=== PATIENT | female | born 1975 | race Caucasian/White ===

== ENCOUNTER 2016-11-25 14:07 | Emergency (ER) | payer OTHER ==
[~2016-11-25 14:07] MED LIST: IBUPROFEN400 MG PO; NICOTINE T21 MG/24 H TOP; VICODIN EQUIVAL1 TAB PO
--- NOTE | 2016-11-25 15:44 | DIAGNOSTIC IMAGING REPORT ---
PROCEDURE: XR CHEST 2 VIEW INDICATION: COUGH TECHNIQUE: PA and lateral views. COMPARISON: None. FINDINGS: Lungs are clear. Heart and mediastinum are normal. Thorax is normal. IMPRESSION: 1. Negative chest.
--- NOTE | 2016-11-25 16:49 | DIAGNOSTIC IMAGING REPORT ---
PROCEDURE: CT SOFT TISSUE NECK WITH CONT INDICATION: Right cheek swelling x 1 day, initial encounter TECHNIQUE: 125 ml of Isovue 300 injected intravenously and axial images were obtained from the skull base through the upper mediastinum with sagittal and coronal reformations. In addition, angled axial oblique images were obtained (avoiding dental hardware). COMPARISON: None. FINDINGS: Prominent soft tissue swelling around the right side of the mandible anteriorly but no evidence of an abscess. There is a small amount of air around the root of the right mandibular incisor and pre molars consistent with cavities. Enlarged right submandibular lymph nodes, 1.3 cm and bilateral cervical lymph nodes (1.1 cm short axis). The parotid, submandibular and thyroid glands are normal. Normal airway. Right maxillary sinus polyp. Visualized mastoids are clear. Moderate degenerative changes of the spine. IMPRESSION: 1. Cavities of the right mandibular incisor and pre molars with adjacent cellulitis/phlegmon but no evidence of an abscess 2. Right maxillary sinus polyp 3. Results discussed with LUTHER Ware All CT scans at this facility use dose modulation, iterative reconstruction, and/or weight-based dosing when appropriate to reduce radiation dose to as low as reasonably achievable.
--- NOTE | 2016-11-25 17:21 | ED ORDER SUMMARY ---
..... Patient: DAVID ARIAS OrderSheet [facility] VisitID: [id number] [place] [address] 41y, F Registration Date/Time: 11/25/2016 ORDER SHEET Weight: 117.9 kg (stated) Allergies: No Known Drug Allergy GENERAL ORDERS: Chest 2V Urgent (14:35 11/25/2016 EKoroleva P.A.-C) (Ack 14:39 LTapper) (16:21 GMarshall R.N.) CBC w Diff Urgent (14:35 11/25/2016 EKoroleva P.A.-C) (Ack 14:39 LTapper) (16:21 GMarshall R.N.) BMP Urgent (14:35 11/25/2016 EKoroleva P.A.-C) (Ack 14:39 LTapper) (16:21 GMarshall R.N.) PCT (Procalcitonin) Urgent (14:36 11/25/2016 EKoroleva P.A.-C) (Ack 14:39 LTapper) (16:21 GMarshall R.N.) EKG - ER Stat (14:36 11/25/2016 EKoroleva P.A.-C) (Ack 14:39 LTapper) (15:02 RKaruga) CT Soft Tissue Neck w Cont (No) (see lab) Urgent (15:36 11/25/2016 EKoroleva P.A.-C) (Ack 15:46 LTapper) (17:07 GMarshall R.N.) MEDICATION ORDERS: Hydrocodone-APAP PO 5/325 mg (NOW) (18:44 11/25/2016 GMarshall R.N. verbal order read back to EKoroleva P.A.-C) (18:45 GMarshall R.N.) IV FLUIDS: IV NS : initial bolus 1000 mL (1000 mL/hr), then 1000 mL/hr for X1 (NOW); Timoteo (14:35 11/25/2016 EKoroleva P.A.-C) (Ack 14:50 GMarshall R.N.) (16:59 GMarshall R.N.) Morphine IV 4 mg (HIGH ALERT MEDICATION, NOW) (15:20 11/25/2016 EKoroleva P.A.-C) (15:23 GMarshall R.N.) Dilaudid IV 0.5 mg (HIGH ALERT MEDICATION, NOW) (15:49 11/25/2016 EKoroleva P.A.-C) (Ack 15:51 MWinterer R.N.) (18:49 MWinterer R.N.) Toradol IV 30 mg (NOW) (16:16 11/25/2016 EKoroleva P.A.-C) (16:21 GMarshall R.N.) Clindamycin IV 900 mg/50mL (NOW) (17:10 11/25/2016 EKoroleva P.A.-C) (17:17 GMarshall R.N.) ORDER SHEET NOTES: [Electronically signed by Pedro Linda R.N. (19:41 11/25/2016)] [Electronically signed by Brianna Nails P.A.-C (20:08 11/25/2016)] [Electronically locked/signed by Pedro Linda R.N. (19:41 11/25/2016)]
--- NOTE | 2016-11-25 17:21 | ED ORDER SUMMARY ---
..... Patient: DAVID ARIAS OrderSheet [facility] VisitID: [id number] [place] [address] 41y, F Registration Date/Time: 11/25/2016 ORDER SHEET Weight: 117.9 kg (stated) Allergies: No Known Drug Allergy GENERAL ORDERS: Chest 2V Urgent (14:35 11/25/2016 EKoroleva P.A.-C) (Ack 14:39 LTapper) (16:21 GMarshall R.N.) CBC w Diff Urgent (14:35 11/25/2016 EKoroleva P.A.-C) (Ack 14:39 LTapper) (16:21 GMarshall R.N.) BMP Urgent (14:35 11/25/2016 EKoroleva P.A.-C) (Ack 14:39 LTapper) (16:21 GMarshall R.N.) PCT (Procalcitonin) Urgent (14:36 11/25/2016 EKoroleva P.A.-C) (Ack 14:39 LTapper) (16:21 GMarshall R.N.) EKG - ER Stat (14:36 11/25/2016 EKoroleva P.A.-C) (Ack 14:39 LTapper) (15:02 RKaruga) CT Soft Tissue Neck w Cont (No) (see lab) Urgent (15:36 11/25/2016 EKoroleva P.A.-C) (Ack 15:46 LTapper) (17:07 GMarshall R.N.) MEDICATION ORDERS: Hydrocodone-APAP PO 5/325 mg (NOW) (18:44 11/25/2016 GMarshall R.N. verbal order read back to EKoroleva P.A.-C) (18:45 GMarshall R.N.) IV FLUIDS: IV NS : initial bolus 1000 mL (1000 mL/hr), then 1000 mL/hr for X1 (NOW); Timoteo (14:35 11/25/2016 EKoroleva P.A.-C) (Ack 14:50 GMarshall R.N.) (16:59 GMarshall R.N.) Morphine IV 4 mg (HIGH ALERT MEDICATION, NOW) (15:20 11/25/2016 EKoroleva P.A.-C) (15:23 GMarshall R.N.) Dilaudid IV 0.5 mg (HIGH ALERT MEDICATION, NOW) (15:49 11/25/2016 EKoroleva P.A.-C) (Ack 15:51 MWinterer R.N.) (18:49 MWinterer R.N.) Toradol IV 30 mg (NOW) (16:16 11/25/2016 EKoroleva P.A.-C) (16:21 GMarshall R.N.) Clindamycin IV 900 mg/50mL (NOW) (17:10 11/25/2016 EKoroleva P.A.-C) (17:17 GMarshall R.N.) ORDER SHEET NOTES: [Electronically signed by Pedro Linda R.N. (19:41 11/25/2016)] [Electronically signed by Brianna Nails P.A.-C (20:08 11/25/2016)] [Electronically locked/signed by Pedro Linda R.N. (19:41 11/25/2016)]
--- NOTE | 2016-11-25 17:21 | ED CLINICAL REPORT ---
Clinical Report - Physicians/Mid Levels [facility] [address] [place] [place] [address] 11/25/2016 14:08 Patient: DAVID ARIAS Time Seen: 14:53 Nov 25 2016. Arrived- By private vehicle. Historian- patient. HISTORY OF PRESENT ILLNESS Chief Complaint: DENTAL PAIN. This started today right side facial pain/ swelling and is still present. Pain described as mild. The patient has had a sore throat. (Patient reports facial swelling over the last 24 hours, worsening. Patient with no fevers. Denies any difficulty swallowing. Reports right side dental pain.). REVIEW OF SYSTEMS No fever, cough, difficulty breathing, diarrhea or abdominal pain. No headache or joint pain. All systems otherwise negative, except as recorded above. SOCIAL HISTORY Smoker- current status unknown. No alcohol use or drug use. ADDITIONAL NOTES The nursing notes have been reviewed. PHYSICAL EXAM Vital Signs: 11/25/2016 14:30 BP: 178/95. HR: 130. RR: 20. O2 saturation: 96%. Temp: 98.4 F. Appearance: Alert. No acute distress. Head: Normal external inspection. ENT: Dental decay. Mild dental tenderness (lower right first premolar, lower right first molar). Ears normal. Pharynx normal. No trismus present. Uvula midline. No muffled or hoarse voice. Neck: Trachea midline. No adenopathy. No thyromegaly. CVS: Normal heart rate and rhythm. Heart sounds normal. Respiratory: No respiratory distress. Breath sounds normal. Abdomen: Soft and nontender. Skin: Normal skin color. Skin rash (r outer facial swelling to the outer lip). Extremities: Extremities nontender. LABS, X-RAYS, AND EKG Laboratory Tests: CBC w Diff: (YING: 11/25/2016 15:10) ( MsgRcvd 11/25/2016 15:33) Final results Test Result Flag Units (Reference) WHITE BLOOD COUNT 18.4 H K/uL (4.5-11.5) RED BLOOD COUNT 4.84 M/uL (4.00-5.20) HEMOGLOBIN 14.6 gm/dL (12.0-16.0) HEMATOCRIT 45.3 % (36.0-46.0) MEAN CELL VOLUME 94 fL (80-100) MEAN CORPUSCULAR HGB 30 pg (26-34) MEAN CORPUSCULAR HGB CONC 32 g/dL (31-37) RED CELL DISTRIBUTION WIDTH 13.6 % (11.6-14.8) PLATELET COUNT 305 K/uL (150-400) NEUTROPHIL % 75.3 H % (50-75) LYMPH % 17.6 L % (25-40) MONO % 4.8 % (3-14) EOSINOPHIL % 2.0 % (0-4) BASOPHIL % 0.3 % (0-2) [id number]: (YING: 11/25/2016 15:10) ( MsgRcvd 11/25/2016 16:14) Final results Test Result Flag Units (Reference) PROCALCITONIN <0.5 ng/mL (0-0.5) PCT Concentration: Interpretation : Risk/option for action PCT <=0.5 ng/mL : Systemic : Low risk forinfection(sepsis): progression to severeis not likely. : systemic infection.Local bacterial : CAUTION-PCT levelsinfection is : below 0.5 ng/mL do notpossible. : exclude an infection,because localizedinfections (withoutsystemic signs) may beassociated with suchlow levels. If PCT ismeasured very earlyafter a bacterialchallenge (usually <6hours), these valuesmay still be low. Inthis case PCT shouldbe re-assessed 6-24hours later. PCT >0.5 and : Systemic infection: Moderate risk for<= 2 ng/mL : (sepsis) is : progression to severepossible, but : systemic infection.other conditions : The patient should beare known to : closely monitoredelevate PCT. : both clinically andby re-assessing PCTwithin 6-24 hours. PCT > 2 ng/mL : Systemic infection: High risk for(sepsis) is likely: progression to severeunless other : systemic infection.causes are known. : PCT >= 10 ng/mL : Important systemic: High likelihood ofinflammatory : severe sepsis orresponse, almost : septic shock.exclusively due to:severe bacterial :sepsis or septic :shock. : BMP: (YING: 11/25/2016 15:10) ( MsgRcvd 11/25/2016 15:40) Final results Test Result Flag Units (Reference) GLUCOSE 257 H mg/dL (70-110) BUN 9 mg/dL (7-18) CREATININE 0.6 mg/dL (0.6-1.3) Estimated GFR >60 mL/min Estimated GFR- >60 mL/min Note: Persistent reduction over 3 months in eGFR<60 mL/min/1.73 m2 defines CKD. Patients with eGFR values>=60 mL/min/1.73 m2 may also have CKD if evidence ofpersistent proteinuria. Additional information may be foundat www.kidney.org. SODIUM 137 mmol/L (136-145) POTASSIUM 3.7 mmol/L (3.5-5.1) CHLORIDE 101 mmol/L (98-107) CARBON DIOXIDE 23 mmol/L (21-32) CALCIUM 8.7 mg/dL (8.5-10.1) . Note - Tests: (CT: IMPRESSION: 1. Cavities of the right mandibular incisor and pre molars with adjacent cellulitis/phlegmon but no evidence of an abscess 2. Right maxillary sinus polyp 3. Results discussed with Artemio Nails, LUTHER All CT scans at this facility use dose modulation, iterative reconstruction, and/or weight-based dosing when appropriate to reduce radiation dose to as low as reasonably achievable. Electronically Final signed by:Winston Miranda MD 11/25/2016 4:48:57 PM). PROGRESS AND PROCEDURES Course of Care: patient here in the ER, with signs of facial swelling, dedicated CT, does not reveal any acute signs of abscess. patient given IV fluids, IV antibiotics in the ER. Patient stable. No uvula shift. No indication for incision and drainage. 11/25/2016 19:15 BP: 110/66. HR: 95. RR: 20. O2 saturation: 98%. Temp: 98.5 F. Patient is stable. Physical exam findings are improved. Symptoms better. Patient/family counseled. Disposition: Discharged. Condition: good. CLINICAL IMPRESSION Facial cellulitis INSTRUCTIONS (warm packs). Prescription Medications: Hydrocodone/APAP 5mg / 325mg: take 1 orally every 6 hours as needed for pain. Dispense fifteen (15). No refill. Cleocin 300 mg: take 1 capsule orally every 8 hours for 10 days. No refill. Substitution is permissible. Motrin 800 mg tablets: take 1 tablet orally every 8 hours for 5 days, as needed for pain. Dispense fifteen (15). No refill. Substitution is permissible. Follow-up: Follow up with your doctor and DENTIST in three days for wound check. (Electronically signed by Brianna Nails P.A.-C 11/25/2016 20:08)
--- NOTE | 2016-11-25 17:21 | ED NURSING NOTES ---
Clinical Report - Nurses [facility] [address] [place] [address] 11/25/2016 14:08 Patient: DAVID ARIAS TRIAGE Acuity: LEVEL 3. Chief Complaint: BOIL. Alert. No acute distress. SEPSIS SCREEN: Sepsis Screen. Negative (no infection suspected/documented). --14:34 Digna Turner R.N. 14:30 11/25/16. BP: 178/95. HR: 130. RR: 20. O2 saturation: 96% on room air. Temp: 98.4 F (oral). --14:34 Digna Turner R.N. 19:41 11/25/16. Pain level now 10/10. --19:41 Pedro Linda R.N. Weight: 117.9 kg stated. Height/Length: 63 inches Per Patient. BMI: 46.1. --14:32 Digna Turner R.N. Medications Ibuprofen Oral. --14:33 Digna Turner R.N. Allergies No Known Drug Allergy. --14:33 Digna Turner R.N. Medication/allergy information source: the patient. --14:34 Digna Turner R.N. History Arrived by private vehicle. Historian: patient. Accompanied by father. Primary physician (none). Reported as located on the face. Onset. (2 days ago). It is described as painful. Treatment DISTILLATION OPERATOR: None. PAST MEDICAL HX: Immunizations: up-to-date. The patient has had a hysterectomy. SOCIAL HX: Current every day heavy tobacco smoker (cigarette)- 1 pack per day. No alcohol use or drug use. FALL RISK ASSESSMENT: Fall risk assessment completed. No fall risk identified. NUTRITIONAL RISK ASSESSMENT: The nutritional risk assessment revealed no deficiencies. FUNCTIONAL ASSESSMENT: Functional assessment: no impairments noted. LEARNING NEEDS ASSESSMENT: The learning needs assessment revealed no barriers. SKIN INTEGRITY ASSESSMENT: Skin integrity risk assessment completed. No skin integrity risk identified. --14:34 Digna Turner R.N. PROBLEMS: Abdominal Pain. Abd Hernia. Nephrolithiasis. Asthma. Hypertension. Pancreatitis. --14:34 Digna Turner R.N. ADDITIONAL SURGERIES: Hysterectomy. Knee Surgery. [place] teeth. --14:34 Digna Turner R.N. Interventions ID band on patient. To treatment room. --14:34 Digna Turner R.N. PHYSICAL ASSESSMENT Ambulatory to room. GENERAL / NEURO / PSYCH: Alert. The patient does not appear to be in acute distress. Oriented X 4. HEENT: Mucous membranes are pink. RESPIRATORY: Respirations not labored. CVS: Capillary refill less than 2 seconds. SKIN: Skin is warm and dry. No skin rash. --14:34 Digna Turner R.N. NURSING PROGRESS NOTES Patient gowned. Two patient identifiers checked. Call light placed in reach. Side rails up x 1. Bed placed in lowest position. Brakes of bed on. Patient ready for evaluation- chart flagged. --14:35 Digna Turner R.N. EKG time: (14:57). EKG was performed by a eliud and shown to the ED physician. --15:01 Yazmin Goddard 15:07 11/25/2016 Site #1 started via IV in the left hand with an 22g angiocath, with aseptic technique and good blood return; two attempts. Blood drawn: rainbow set. Labeled in the presence of the patient and sent to the lab. Saline lock flushed with 10 mL saline. --15:22 Pedro Linda R.N. 15:23 11/25/2016 Morphine IVP 4 mg given over 2 minute(s) via site #1. --15:23 Pedro Linda R.N. 15:49 11/25/2016 Started bag #1 1000 mL IV Fluids IV NS (Saline); bolus of 1000 mL over 1 hour(s) via site #1 --16:59 Pedro Linda R.N. 15:55 11/25/2016 Dilaudid (HYDROmorphone HCl PF) IVP 0.5 mg given over 1 minute(s) via site #1. Allergies verified, confirmed 5 rights and sedative warning given to the patient. IV patency established. IV site checked: no pain, redness, or swelling. IV flushed thoroughly pre- and post-medication administration. IVP given by RN. --18:49 Digna Turner R.N. 16:17 11/25/2016 Dilaudid IVP Response: symptoms are the same. --19:17 Pedro Linda R.N. 16:21 11/25/2016 Toradol IVP 30 mg given over 2 minute(s) via site #1. --16:21 Pedro Linda R.N. 16:45 11/25/2016 Morphine IVP Response: symptoms are the same. The patient feels the same. --18:45 Pedro Linda R.N. 17:00 11/25/2016 Started bag #1 1000 mL IV Fluids IV NS (Saline); at 1000 mL/hr over 1 hour(s) via site #1 --17:01 Pedro Linda R.N. 17:00 11/25/2016 IV Fluids IV NS Discontinued: bag #1 completed. Total amount infused: 1000 mL. --17:00 Pedro Linda R.N. 17:12 11/25/2016 Started 900 mg of Clindamycin IVPB in bag #1 50 mL; at 100 mL/hr over 30 minute(s) via site #1 --17:17 Pedro Linda R.N. 17:18 11/25/2016 Toradol IVP Response: pain is improving. Symptoms have improved. --19:18 Pedro Linda R.N. 18:18 11/25/2016 Clindamycin IVPB Discontinued: bag #3 completed upon discharge. Total amount infused: 50 mL. --19:19 Pedro Linda R.N. 18:30 11/25/2016 Site #1 removed upon discharge. Catheter intact. Bandaid applied. --19:21 Pedro Linda R.N. 18:31 11/25/2016 IV Fluids IV NS Discontinued: bag #2 completed. Total amount infused: 1000 mL. --18:46 Pedro Linda R.N. 18:45 11/25/2016 Hydrocodone-APAP (Hydrocodone-Acetaminophen) PO 5/325 mg Tablets 1 tab given. --18:45 Pedro Linda R.N. DISPOSITION / DISCHARGE 18:43 11/25/16. BP: 110/66. HR: 95. RR: 20. O2 saturation: 98%. Temp: 98 F. Pain level now 05/19. --18:43 Pedro Linda R.N. 19:15 11/25/16. BP: 110/66. HR: 95. RR: 20. O2 saturation: 98%. Temp: 98.5 F. Pain level now 05/19. --19:16 Pedro Linda R.N. Condition at departure: improved. No learning barriers present. Discharge instructions provided and reviewed with the patient. Patient verbalized understanding. Written instructions provided in Maldivian. The patient was discharged by the physician educational assistant teacher. She was discharged home. She left the Emergency Department ambulatory. --19:16 Pedro Linda R.N. Locked/Released at 11/25/2016 19:41 by Pedro Linda R.N.
--- NOTE | 2016-11-25 20:08 | ED MED RECONCILIATION SUMMARY ---
Patient: DAVID ARIAS Medication Reconciliation Report [facility] VisitID: [id number] [address] [place] [address] 41y, F Registration Date/Time: 11/25/2016 Weight: 117.9 kg Height/Length: 63 in. BMI: 46.1 ALLERGIES: No Known Drug Allergy The patient's Home Medications are listed below: THE FOLLOWING MEDICATIONS NEED TO BE RECONCILED: Ibuprofen Oral The source(s) of the original Home Medication information: patient The following Medications were given to the patient in the Emergency Department: Morphine [IVP] IVP 4 mg, administered: 11/25/2016 3:23:00 PM Toradol [IVP] IVP 30 mg, administered: 11/25/2016 4:21:00 PM IV NS IV Fluids bolus 1000 mL over 1 hour(s), administered: 11/25/2016 3:49:00 PM IV NS IV Fluids bolus 0, then 1000 mL/hr, administered: 11/25/2016 5:00:00 PM Clindamycin [IVPB] IVPB bolus 0, then 900 mg 100 mL/hr, administered: 11/25/2016 5:12:00 PM Hydrocodone-APAP [PO] PO 1 tab, administered: 11/25/2016 6:45:00 PM Dilaudid [IVP] IVP 0.5 mg, administered: 11/25/2016 3:55:00 PM The following Medications were prescribed to the patient: Hydrocodone/APAP 5mg / 325mg: take 1 orally every 6 hours as needed for pain. Dispense fifteen (15). No refill. -- Brianna Nails, P.A.-C Cleocin 300 mg: take 1 capsule orally every 8 hours for 10 days. No refill. Substitution is permissible. -- Brianna Nails, P.A.-C Motrin 800 mg tablets: take 1 tablet orally every 8 hours for 5 days, as needed for pain. Dispense fifteen (15). No refill. Substitution is permissible. -- Brianna Nails, P.A.-C
--- NOTE | 2016-11-25 20:08 | ED MED RECONCILIATION SUMMARY ---
Patient: DAVID ARIAS Medication Reconciliation Report [facility] VisitID: [id number] [address] [place] [address] 41y, F Registration Date/Time: 11/25/2016 Weight: 117.9 kg Height/Length: 63 in. BMI: 46.1 ALLERGIES: No Known Drug Allergy The patient's Home Medications are listed below: THE FOLLOWING MEDICATIONS NEED TO BE RECONCILED: Ibuprofen Oral The source(s) of the original Home Medication information: patient The following Medications were given to the patient in the Emergency Department: Morphine [IVP] IVP 4 mg, administered: 11/25/2016 3:23:00 PM Toradol [IVP] IVP 30 mg, administered: 11/25/2016 4:21:00 PM IV NS IV Fluids bolus 1000 mL over 1 hour(s), administered: 11/25/2016 3:49:00 PM IV NS IV Fluids bolus 0, then 1000 mL/hr, administered: 11/25/2016 5:00:00 PM Clindamycin [IVPB] IVPB bolus 0, then 900 mg 100 mL/hr, administered: 11/25/2016 5:12:00 PM Hydrocodone-APAP [PO] PO 1 tab, administered: 11/25/2016 6:45:00 PM Dilaudid [IVP] IVP 0.5 mg, administered: 11/25/2016 3:55:00 PM The following Medications were prescribed to the patient: Hydrocodone/APAP 5mg / 325mg: take 1 orally every 6 hours as needed for pain. Dispense fifteen (15). No refill. -- Brianna Nails, P.A.-C Cleocin 300 mg: take 1 capsule orally every 8 hours for 10 days. No refill. Substitution is permissible. -- Brianna Nails, P.A.-C Motrin 800 mg tablets: take 1 tablet orally every 8 hours for 5 days, as needed for pain. Dispense fifteen (15). No refill. Substitution is permissible. -- Brianna Nails, P.A.-C
--- NOTE | 2016-11-25 20:08 | ED DISCHARGE INSTRUCTIONS ---
Patient: DAVID ARIAS General Instructions [facility] VisitID: [id number] [place] [address] 41y, F Registration Date/Time: 11/25/2016 Facial cellulitis INSTRUCTIONS (warm packs). Prescription Medications: Hydrocodone/APAP 5mg / 325mg: take 1 orally every 6 hours as needed for pain. Dispense fifteen (15). No refill. Cleocin 300 mg: take 1 capsule orally every 8 hours for 10 days. No refill. Substitution is permissible. Motrin 800 mg tablets: take 1 tablet orally every 8 hours for 5 days, as needed for pain. Dispense fifteen (15). No refill. Substitution is permissible. Follow-up: Follow up with your doctor and DENTIST in three days for wound check. ADDITIONAL INFORMATION Facial Cellulitis You have an infection of the skin known as cellulitis. This usually starts with a scrape, cut or insect bite which becomes infected. It may also occur from an infected oil gland (pimple) or hair follicle. This can be a serious condition and must be watched closely to be sure the infection is not spreading. With antibiotic treatment, the size of the red area will gradually shrink in size until the skin returns to normal. This will take 7-10 days. The red area should never increase in size once the antibiotic medicine has been started. Occasionally, an infection will be resistant to one antibiotic and another one will have to be used. Home Care: 1) Take all of the antibiotic medicine exactly as prescribed until it is gone. Be careful not to miss any doses, especially during the first few days. 2) A cool compress (face cloth soaked in cool water) applied to the face may help with the swelling and pain. 3) You may use acetaminophen (Tylenol) or ibuprofen (Motrin, Advil) to control pain, unless another medicine was prescribed. [ NOTE : If you have chronic liver or kidney disease or ever had a stomach ulcer or GI bleeding, talk with your doctor before using these medicines.] (Aspirin should never be used in anyone under 18 years of age who is ill with a fever. It may cause severe liver damage.) Follow Up with your doctor or this facility as directed. Check the infected area daily for the warning signs listed below. Get Prompt Medical Attention if any of the following occur: -- Increasing area of redness, swelling or pain -- Pus or fluid drainage from the skin or the eye -- Fever of 100.5 F (38 C) oral or 101.5 F (38.6 C) rectal for more than two days on antibiotics -- Eyelid swells shut -- Increasing headache or neck pain -- Unusual drowsiness or confusion -- Convulsion (seizure) Hydrocodone Bitartrate, Acetaminophen Oral tablet What is this medicine? ACETAMINOPHEN; HYDROCODONE (a set a XOCHITL dimitris fen; den droe KOE done) is a pain reliever. It is used to treat mild to moderate pain. How should I use this medicine? Take this medicine by mouth. Swallow it with a full glass of water. Follow the directions on the prescription label. If the medicine upsets your stomach, take the medicine with food or milk. Do not take more than you are told to take. Talk to your emergency veterinary assistant regarding the use of this medicine in children. This medicine is not approved for use in children. What side effects may I notice from receiving this medicine? Side effects that you should report to your doctor or health manager critical care as soon as possible: allergic reactions like skin rash, itching or hives, swelling of the face, lips, or tongue breathing problems confusion feeling faint or lightheaded, falls stomach pain yellowing of the eyes or skin Side effects that usually do not require medical attention (report to your doctor or health manager critical care if they continue or are bothersome): nausea, vomiting stomach upset What may interact with this medicine? alcohol antihistamines isoniazid medicines for depression, anxiety, or psychotic disturbances medicines for sleep muscle relaxants naltrexone narcotic medicines (opiates) for pain phenobarbital ritonavir tramadol What if I miss a dose? If you miss a dose, take it as soon as you can. If it is almost time for your next dose, take only that dose. Do not take double or extra doses. Where should I keep my medicine? Keep out of the reach of children. This medicine can be abused. Keep your medicine in a safe place to protect it from theft. Do not share this medicine with anyone. Selling or giving away this medicine is dangerous and against the law. Store at room temperature between 15 and 30 degrees C (59 and 86 degrees F). Protect from light. Keep container tightly closed. Throw away any unused medicine after the expiration date. Discard unused medicine and used packaging carefully. Pets and children can be harmed if they find used or lost packages. What should I tell my health care provider before I take this medicine? They need to know if you have any of these conditions: brain tumor Crohn's disease, inflammatory bowel disease, or ulcerative colitis drink more than 3 alcohol-containing drinks per day drug abuse or addiction head injury heart or circulation problems kidney disease or problems going to the bathroom liver disease lung disease, asthma, or breathing problems an unusual or allergic reaction to acetaminophen, hydrocodone, other opioid analgesics, other medicines, foods, dyes, or preservatives or trying to get breast-feeding What should I watch for while using this medicine? Tell your doctor or health manager critical care if your pain does not go away, if it gets worse, or if you have new or a different type of pain. You may develop tolerance to the medicine. Tolerance means that you will need a higher dose of the medicine for pain relief. Tolerance is normal and is expected if you take the medicine for a long time. Do not suddenly stop taking your medicine because you may develop a severe reaction. Your body becomes used to the medicine. This does NOT mean you are addicted. Addiction is a behavior related to getting and using a drug for a non-medical reason. If you have pain, you have a medical reason to take pain medicine. Your doctor will tell you how much medicine to take. If your doctor wants you to stop the medicine, the dose will be slowly lowered over time to avoid any side effects. You may get drowsy or dizzy when you first start taking the medicine or change doses. Do not drive, use machinery, or do anything that may be dangerous until you know how the medicine affects you. Stand or sit up slowly. There are different types of narcotic medicines (opiates) for pain. If you take more than one type at the same time, you may have more side effects. Give your health care provider a list of all medicines you use. Your doctor will tell you how much medicine to take. Do not take more medicine than directed. Call emergency for help if you have problems breathing. The medicine will cause constipation. Try to have a bowel movement at least every 2 to 3 days. If you do not have a bowel movement for 3 days, call your doctor or health manager critical care. Too much acetaminophen can be very dangerous. Do not take Tylenol (acetaminophen) or medicines that contain acetaminophen with this medicine. Many non-prescription medicines contain acetaminophen. Always read the labels carefully. Clindamycin Hydrochloride Oral capsule What is this medicine? CLINDAMYCIN (NORMAN Jeong) is a lincosamide antibiotic. It is used to treat certain kinds of bacterial infections. It will not work for colds, flu, or other viral infections. How should I use this medicine? Take this medicine by mouth with a full glass of water. Follow the directions on the prescription label. You can take this medicine with food or on an empty stomach. If the medicine upsets your stomach, take it with food. Take your medicine at regular intervals. Do not take your medicine more often than directed. Take all of your medicine as directed even if you think your are better. Do not skip doses or stop your medicine early. Talk to your emergency veterinary assistant regarding the use of this medicine in children. Special care may be needed. What side effects may I notice from receiving this medicine? Side effects that you should report to your doctor or health manager critical care as soon as possible: allergic reactions like skin rash, itching or hives, swelling of the face, lips, or tongue dark urine pain on swallowing redness, blistering, peeling or loosening of the skin, including inside the mouth unusual bleeding or bruising unusually weak or tired yellowing of eyes or skin Side effects that usually do not require medical attention (report to your doctor or health manager critical care if they continue or are bothersome): diarrhea itching in the rectal or genital area joint pain nausea, vomiting stomach pain What may interact with this medicine? chloramphenicol erythromycin kaolin products What if I miss a dose? If you miss a dose, take it as soon as you can. If it is almost time for your next dose, take only that dose. Do not take double or extra doses. Where should I keep my medicine? Keep out of the reach of children. Store at room temperature between 20 and 25 degrees C (68 and 77 degrees F). Throw away any unused medicine after the expiration date. What should I tell my health care provider before I take this medicine? They need to know if you have any of these conditions: kidney disease liver disease stomach problems like colitis an unusual or allergic reaction to clindamycin, lincomycin, or other medicines, foods, dyes like tartrazine or preservatives or trying to get breast-feeding What should I watch for while using this medicine? Tell your doctor or healthcare professional if your symptoms do not start to get better or if they get worse. Do not treat diarrhea with over the counter products. Contact your doctor if you have diarrhea that lasts more than 2 days or if it is severe and watery. You have been given the following additional information: Cellulitis, Facial Hydrocodone Bitartrate, Acetaminophen Oral tablet Clindamycin Hydrochloride Oral capsule (Electronically signed by Brianna Nails P.A.-C 11/25/2016 20:08)
--- NOTE | 2016-11-25 20:08 | ED MAR SUMMARY ---
..... Medication Administration Record [facility] [address] [place] [address] Patient: DAVID ARIAS Visit ID: [id number] 41y, F Weight: 117.9 kg Height/Length: 63 in BMI: 46.1 ALLERGIES: No Known Drug Allergy Given 15:23 11/25/2016 Pedro Linda R.N. Medication Administered: MORPHINE [IVP], Dose: 4 mg IVP over 2 minute(s), Site: #1 left hand. Medication Ordered: Morphine IV 4 mg (HIGH ALERT MEDICATION, NOW). Start 15:49 11/25/2016 Pedro Linda R.N., Stop 17:00 11/25/2016 Pedro Linda R.N. Medication Administered: IV NS (SALINE), Dose: IV Fluids, Bolus: 1000 mL over 1 hour(s), Dispensed: 1000 mL bag, Site: #1 left hand. Medication Ordered: IV NS : initial bolus 1000 mL (1000 mL/hr), then 1000 mL/hr for X1 (NOW); Itmoteo. Given 15:55 11/25/2016 Digna Turner R.N. Medication Administered: DILAUDID [IVP] (HYDROMORPHONE HCL PF), Dose: 0.5 mg IVP over 1 minute(s), Site: #1 left hand. Medication Ordered: Dilaudid IV 0.5 mg (HIGH ALERT MEDICATION, NOW). Given 16:21 11/25/2016 Pedro Linda R.N. Medication Administered: TORADOL [IVP], Dose: 30 mg IVP over 2 minute(s), Site: #1 left hand. Medication Ordered: Toradol IV 30 mg (NOW). Start 17:00 11/25/2016 Pedro Linda R.N., Stop 18:31 11/25/2016 Pedro Linda R.N. Medication Administered: IV NS (SALINE), Dose: IV Fluids over 1 hour(s), Rate: 1000 mL/hr, Dispensed: 1000 mL bag, Site: #1 left hand. Medication Ordered: IV NS : initial bolus 1000 mL (1000 mL/hr), then 1000 mL/hr for X1 (NOW); Timoteo. Start 17:12 11/25/2016 Pedro Linda R.N., Stop 18:18 11/25/2016 Pedro Linda R.N. Medication Administered: CLINDAMYCIN [IVPB], Dose: 900 mg IVPB over 30 minute(s), Rate: 100 mL/hr, Dispensed: 50 mL bag, Site: #1 left hand. Medication Ordered: Clindamycin IV 900 mg/50mL (NOW). Given 18:45 11/25/2016 Pedro Linda R.N. Medication Administered: HYDROCODONE-APAP [PO] (HYDROCODONE-ACETAMINOPHEN), Dose: 1 tab 5/325 mg Tablets PO. Medication Ordered: Hydrocodone-APAP PO 5/325 mg (NOW).
--- NOTE | 2016-11-25 20:08 | ED MAR SUMMARY ---
..... Medication Administration Record [facility] [address] [place] [address] Patient: DAVID ARIAS Visit ID: [id number] 41y, F Weight: 117.9 kg Height/Length: 63 in BMI: 46.1 ALLERGIES: No Known Drug Allergy Given 15:23 11/25/2016 Pedro Linda R.N. Medication Administered: MORPHINE [IVP], Dose: 4 mg IVP over 2 minute(s), Site: #1 left hand. Medication Ordered: Morphine IV 4 mg (HIGH ALERT MEDICATION, NOW). Start 15:49 11/25/2016 Pedro Linda R.N., Stop 17:00 11/25/2016 Pedro Linda R.N. Medication Administered: IV NS (SALINE), Dose: IV Fluids, Bolus: 1000 mL over 1 hour(s), Dispensed: 1000 mL bag, Site: #1 left hand. Medication Ordered: IV NS : initial bolus 1000 mL (1000 mL/hr), then 1000 mL/hr for X1 (NOW); Timoteo. Given 15:55 11/25/2016 Digna Turner R.N. Medication Administered: DILAUDID [IVP] (HYDROMORPHONE HCL PF), Dose: 0.5 mg IVP over 1 minute(s), Site: #1 left hand. Medication Ordered: Dilaudid IV 0.5 mg (HIGH ALERT MEDICATION, NOW). Given 16:21 11/25/2016 Pedro Linda R.N. Medication Administered: TORADOL [IVP], Dose: 30 mg IVP over 2 minute(s), Site: #1 left hand. Medication Ordered: Toradol IV 30 mg (NOW). Start 17:00 11/25/2016 Pedro Linda R.N., Stop 18:31 11/25/2016 Pedro Linda R.N. Medication Administered: IV NS (SALINE), Dose: IV Fluids over 1 hour(s), Rate: 1000 mL/hr, Dispensed: 1000 mL bag, Site: #1 left hand. Medication Ordered: IV NS : initial bolus 1000 mL (1000 mL/hr), then 1000 mL/hr for X1 (NOW); Timoteo. Start 17:12 11/25/2016 Pedro Linda R.N., Stop 18:18 11/25/2016 Pedro Linda R.N. Medication Administered: CLINDAMYCIN [IVPB], Dose: 900 mg IVPB over 30 minute(s), Rate: 100 mL/hr, Dispensed: 50 mL bag, Site: #1 left hand. Medication Ordered: Clindamycin IV 900 mg/50mL (NOW). Given 18:45 11/25/2016 Pedro Linda R.N. Medication Administered: HYDROCODONE-APAP [PO] (HYDROCODONE-ACETAMINOPHEN), Dose: 1 tab 5/325 mg Tablets PO. Medication Ordered: Hydrocodone-APAP PO 5/325 mg (NOW).
== END 2016-11-25 18:45 | disposition home or self-care (01) ==
LOC: ED SRH 14:07
DX: L03.211 Cellulitis of face (principal)
CPT/HCPCS: 90047; 93004; 95059